=== PATIENT | male | born 1990 | race Caucasian/White ===

== ENCOUNTER 2017-10-01 22:08 | Emergency (ER) | payer BC ==
[2017-10-01 22:19] VITALS: BP 162/99
[2017-10-01] MEDS ORDERED: CIPROFLOXACIN HCL 50 DROP BTL ONE (22:25)
[2017-10-01] MEDS ORDERED: ACETAMINOPHEN 500 MG TABLET PO ONE (22:27)
[2017-10-01] MEDS ORDERED: CIPROFLOXACIN HCL 50 DROP BTL OT ONE (22:27)
[2017-10-01] MEDS ORDERED: CIPROFLOXACIN HCL 50 DROP BTL EACHEYE ONE (22:32)
--- NOTE | 2017-10-01 22:44 | ERNOTE ---
ENT HPI Date of Service: 10/01/17 Presenting Symptoms: other - ear pain Time Seen by Provider: 10/01/17 22:30 Source: patient Exam Limitations: no limitations - Immun/Allergies/Home Medications Immunizations: IMMUNIZATION HX Immunizations Up to Date Yes History of Influenza Vaccine No Hx Pneumococcal Vaccination No Allergies/Adverse Reactions: Allergies Allergy/AdvReac Type Severity Reaction Status Date / Time No Known Allergies Allergy Verified 10/26/15 15:27 Home Medications: HOME MEDICATIONS Naproxen [Naprosyn] 500 mg PO BID PRN #20 tablet 10/01/17 [Last Taken Unknown] - History of Present Illness Narrative: 27 year old that has been having left ear pain for seven days. 6 days ago he borrowed a friends ear drops and there was improvement for two days but then the pain worsened. Four days ago seen at the walk in clinic and prescribed Amoxicillin which he has been taking. No complaints of fevers, chills or headache. Two hours prior to being seen in the ED he took Ibuprofen. Date (Duration): 10/01/17 Time (Timing): 22:39 Severity: Present: moderate ENT Location: Present: ear (L) Prearrival Treatment: Present: over the counter meds Modifying Factors - Improves: Reports: nothing Modifying Factors - Worsens: Reports: nothing Associated Symptoms - ENT: Denies: nasal congestion/drainage, facial pain/ swelling, tooth pain Prior Treament: Reports: treated by physician Review of Systems - Review of Systems Constitutional: Present: no symptoms reported EYE: Present: no symptoms reported ENT: Present: See HPI Respiratory: Present: no symptoms reported Cardiology: Present: no symptoms reported Gastrointestinal/Abdominal: Present: no symptoms reported Genitourinary: Present: no symptoms reported Musculoskeletal: Present: no symptoms reported Skin: Present: no symptoms reported Neurological: Present: no symptoms reported Endocrine: Present: no symptoms reported Hematologic/Lymphatic: Present: no symptoms reported Psych: Present: no symptoms reported - Patient's Past Medical History Patient History - Medical: No pertinent hx Patient History - Cardiac/Respiratory: Hypertension Patient History - Cancer: No Hx of Cancer Patient History - Surgical Procedures: No surgical history Patient History - Other: None - Social History Living Situations: home Abuse History: No History of abuse Psych History: No pertinent hx Smoking Status: Current every day smoker Have you smoked in the past 12 months: Yes Do you dip or chew tobacco: No Patient requests Smoking Cessation Consult: No Initiate information on Smoking Cessation: No Alcohol Use: none Drug Use: none - Immunizations Immunizations Up to Date: Yes Hx Pneumococcal Vaccination: No History of Influenza Vaccine: No Physical Exam - Physical Exam General Appearance: Present: no apparent distress Head Exam: Present: normal inspection Eye Exam: Normal inspection: bilateral, EOMI: bilateral Ears, Nose, Throat: Present: other - Edematous left external canal with exudate. Neck: Present: normal inspection, full range of motion Respiratory: Present: no respiratory distress Cardiovascular/Chest: Present: tachycardia Gastrointestinal/Abdominal: Present: nondistended Back Exam: Present: normal inspection Extremity Exam: Present: normal inspection Neurological Exam: Present: alert, oriented Skin Exam: Present: normal color ED Progress - Vital Signs Patient's Vital Signs:: I have reviewed the patient's vital signs. Vital Signs: Vital Signs 10/01/17 22:12 Temperature 37.3 C Pulse Rate 118 H Respiratory 17 Rate Blood Pressure 162/99 O2 Sat by Pulse 97 Oximetry - Progress/Reassessment Chief Complaint: Earache Progress:: Unchanged Progress Note-Subjective: 10/01/17 22:42 A wich was placed in the left ear and Cipro drops were placed. Given Tylenol 1 gram PO> 10/01/17 22:44 Departure Clinical Impression: Otitis externa - Departure Disposition: Home self-care Condition: Good Instructions: Otitis Externa, [id number] Print Language: Lithuanian Additional Instructions: If the pain increases return to the ED. See the list of providers for follow up as needed in 3-5 days. Tylenol can also be used for pain. Prescriptions: Naproxen [Naprosyn] 500 mg PO BID PRN #20 tablet PRN Reason: Pain
== END 2017-10-01 22:35 | disposition home or self-care (01) ==
LOC: ER 22:08
DX: H60.92 Unspecified otitis externa, left ear (principal); F17.200 Nicotine dependence, unspecified, uncomplicated